=== PATIENT | male | born 1990 | race Hispanic/Latino ===

== ENCOUNTER 2018-02-19 13:06 | Emergency (ER) | payer SELFPAY ==
[2018-02-19 14:26] LABS: BILIRUBIN,URINE Negative (NEGATIVE); COLOR,URINE Yellow (YELLOW); GLUCOSE, URINE (UA) Negative (NEGATIVE); KETONES,URINE Negative (NEGATIVE); LEUKOCYTE ESTERASE ,URINE Moderate (NEGATIVE); NITRATE,URINE Negative (NEGATIVE); OCCULT BLOOD,URINE Negative (NEGATIVE); PROTEIN,URINE Negative (NEGATIVE)
[2018-02-19 14:30] LABS: APPEARANCE,URINE CLOUDY (CLEAR)
[2018-02-19 14:40] LABS: BACTERIA,URINE Few /HPF (None Seen); RBC,URINE None Seen /HPF (0-1)
[2018-02-19 14:41] LABS: AMORPHOUS SEDIMENT,UR Moderate /LPF (None Seen); MUCUS,URINE Few LPF (None Seen)
== END 2018-02-19 14:14 | disposition home or self-care (01) ==
LOC: EDH 13:06
DX: A60.02 Herpesviral infection of other male genital organs (principal)
CPT/HCPCS: 81001; 87486; 87797